=== PATIENT | male | born 1960 | race Caucasian/White ===

== ENCOUNTER 2021-02-24 13:39 | Inpatient (IN) | payer MEDICAID ==
[~2021-02-24] VITALS: Ht 188 cm; Wt 72.6 kg
[~2021-02-24 13:39] MED LIST: ARIP10TA38 PO; GABA100C PO; LITH300CRT PO; QUET200T PO
[2021-02-24 16:48] LABS: BASOPHILS % (AUTO) 0.8 % (0.0-2.0); EOSINOPHILS % (AUTO) 2.2 % (1.0-6.0); HEMATOCRIT 43.3 % (41-53); HEMOGLOBIN 14.1 g/dL (13.5-17.5); LYMPHOCYTES # (AUTO) 1.8 K/uL (1.0-4.8); LYMPHOCYTES % (AUTO) 17.7 % (22.0-44.0); MEAN CORPUSCULAR HEMOGLOBIN 29.8 pg (26.0-34.0); MEAN CORPUSCULAR HGB CONC 32.5 G/dL (31.0-37.0); MEAN CORPUSCULAR VOLUME 92 fL (80-100); MONOCYTES # (AUTO) 0.9 K/uL (0.1-1.0); MONOCYTES % (AUTO) 9.1 % (2.0-9.0); NEUTROPHILS % (AUTO) 70.2 % (40.0-70.0); PLATELET COUNT (AUTO) 181 K/uL (150-450); RED BLOOD CELL COUNT(AUTO) 4.73 MIL/uL (4.50-5.90); RED CELL DISTRIBUTION WIDTH 14.2 % (11.5-14.5)
[2021-02-24] MEDS ORDERED: VITA100T PO (16:51)
[2021-02-24] MEDS ORDERED: DIPH25 PO (16:53)
[2021-02-24] MEDS ORDERED: IPRA4AER IH (16:54)
[2021-02-24] MEDS ORDERED: DICY20TA2 PO (16:55)
[2021-02-24] MEDS ORDERED: CYCL10 PO (16:55)
[2021-02-24] MEDS ORDERED: FOLI-130 PO (16:56)
[2021-02-24 16:57] LABS: ANION GAP 14 mmol/L (8-16); CALCIUM, TOTAL 8.4 mg/dL (8.8-10.5); CARBON DIOXIDE 33 mmol/L (22-29); CHLORIDE 101 mmol/L (98-107); GLOMERULAR FILTR. RATE CALC > 60 mL/min (>60); GLUCOSE,RANDOM 162 mg/dL (70-110); POTASSIUM 3.4 mmol/L (3.5-5.1); SODIUM SERUM 148 mmol/L (136-145); UREA NITROGEN, BLOOD 17 mg/dL (7-18)
[2021-02-24] MEDS ORDERED: IBUP-2071 PO (16:57)
[2021-02-24] MEDS ORDERED: FURO40 PO (16:57)
[2021-02-24] MEDS ORDERED: THIA100T80 PO (17:00)
[2021-02-24] MEDS ORDERED: POTA20TA83 PO (17:00)
[2021-02-24] MEDS ORDERED: QUET200T PO (17:00)
[2021-02-24] MEDS ORDERED: TIOT185 IH (17:00)
[2021-02-24] MEDS ORDERED: [UNRECOGNIZED DRUG - CODE] PO (17:00)
[2021-02-24] MEDS ORDERED: ONDA-104 PO (17:00)
[2021-02-24 17:03] LABS: ALANINE AMINOTRANSFERASE 26 U/L (12-78); ALBUMIN 3.4 g/dL (3.4-5.0); ALKALINE PHOSPHATASE 77 U/L (46-116); ASPARTATE AMINOTRANSFERASE 23 U/L (15-37); BILIRUBIN,TOTAL 0.5 mg/dL (0.1-1.0); TOTAL PROTEIN, SERUM 7.7 g/dL (6.4-8.2)
[2021-02-24 17:10] LABS: COVID AG,FIA SOURCE NASOPHARYNGEAL
[2021-02-24 18:08] LABS: LITHIUM < 0.20 mmol/L (0.60-1.20)
[2021-02-24 18:47] LABS: AMPHET/METH SCREEN,URINE POSITIVE (NEGATIVE); BARBITURATE SCREEN, URINE NEGATIVE (NEGATIVE); BENZODIAZEPINES SCREEN,URINE NEGATIVE (NEGATIVE); CANNABINOID SCREEN,URINE NEGATIVE (NEGATIVE); COCAINE SCREEN,URINE NEGATIVE (NEGATIVE); METHADONE SCREEN, URINE NEGATIVE (NEGATIVE); OPIATE SCREEN,URINE NEGATIVE (NEGATIVE)
[2021-02-24 18:49] LABS: PHENCYCLIDINE SCREEN,URINE NEGATIVE (NEGATIVE)
[2021-02-24] MEDS ORDERED: OLANZapine 5 MG RAPDIS TABLET PO PRN (19:00)
[2021-02-24] MEDS ORDERED: ZOLPIDEM TARTRATE 10 MG TABLET PO PRN (19:00)
[2021-02-24] MEDS ORDERED: LORazepam 2 MG TABLET PO PRN (19:00)
[2021-02-24] MEDS ORDERED: POTASSIUM CHLORIDE 10% 40 MEQ/30 ML LIQUID UDCUP PO ONE (20:00)
[2021-02-24] MEDS ORDERED: FUROSEMIDE 20 MG TABLET PO ONE (20:00)
[2021-02-24] MEDS ORDERED: BUPRENORPHINE HCL/NALOXONE HCL 8-2 MG SUBLINGUAL TABLET SL ONE (20:00)
[2021-02-25 05:15] LABS: CHOL/HDL RATIO 3.1 (4.2-7.3); CHOLESTEROL 124 mg/dL (131-200); HDL CHOLESTEROL 40 mg/dL (40-60); LDL CHOL (CALC.) 72 mg/dL (0-130); TRIGLYCERIDES 61 mg/dL (15-150)
[2021-02-25] MEDS ORDERED: FUROSEMIDE 20 MG TABLET PO ONE (16:30)
[2021-02-25] MEDS ORDERED: ALBUTEROL SULFATE HFA 90 MCG/PUFF 8 GM INHALER IH ONE (16:30)
[2021-02-25] MEDS ORDERED: BUPRENORPHINE HCL/NALOXONE HCL 2-0.5 MG SUBLINGUAL TABLET SL ONE (16:30)
[2021-02-25 18:03] VITALS: BP 158/86
[2021-02-25 21:25] VITALS: BP 103/68
[2021-02-25] MEDS ORDERED: CloNIDine HCL 0.1 MG TABLET PO PRN (21:30)
[2021-02-25] MEDS ORDERED: TUBERCULIN, PURIFIED PROTEIN DERIVATIVE 5 TU/0.1 ML SYRINGE ID ONE (21:30)
[2021-02-25] MEDS ORDERED: GuaiFENesin/D-METHORPHAN [SUGAR-FREE] 200-20MG/10 ML SYRUP UDCUP PO PRN (21:30)
[2021-02-25] MEDS ORDERED: MAGNESIUM HYDROXIDE SUSPENSION 30 ML UDCUP PO PRN (21:30)
[2021-02-25] MEDS ORDERED: HydrOXYzine PAMOATE 50 MG CAPSULE PO PRN (21:30)
[2021-02-25] MEDS: CloNIDine HCL 0.1 MG TABLET PO SCH (21:30)
[2021-02-25] MEDS ORDERED: LOPERAMIDE HCL 2 MG CAPSULE PO PRN ×2 (21:30)
[2021-02-25] MEDS ORDERED: ACETAMINOPHEN 325 MG TABLET PO PRN (21:30)
[2021-02-25] MEDS ORDERED: MAG HYDROX/AL HYDROX/SIMETH ES 30 ML SUSPENSION UDCUP PO PRN ×2 (21:30)
[2021-02-25] MEDS ORDERED: PROMETHAZINE HCL 25 MG TABLET PO PRN (21:30)
[2021-02-25] MEDS ORDERED: IBUPROFEN 600 MG TABLET PO PRN (21:30)
[2021-02-25] MEDS ORDERED: ALBUTEROL SULFATE HFA 90 MCG/PUFF 8 GM INHALER IH PRN (22:00)
[2021-02-25 22:25] VITALS: BP 111/72
[2021-02-25 23:25] VITALS: BP_SYST 108; BP_SYST 113; BP_DIAS 66
[2021-02-26] VITALS (8 sets, daily range): BP systolic 95–114; BP diastolic 62–71
[2021-02-26] MEDS: CloNIDine HCL 0.1 MG TABLET PO SCH ×4 (05:51→20:29)
[2021-02-26 06:21] LABS: HEMOGLOBIN A1C 5.8 % (3.8-5.6)
[2021-02-26 06:30] LABS: ALANINE AMINOTRANSFERASE 134 U/L (12-78); ALBUMIN 2.6 g/dL (3.4-5.0); ALKALINE PHOSPHATASE 194 U/L (46-116); ANION GAP 3 mmol/L (8-16); ASPARTATE AMINOTRANSFERASE 123 U/L (15-37); BILIRUBIN,TOTAL 0.2 mg/dL (0.1-1.0); CALCIUM, TOTAL 8.2 mg/dL (8.8-10.5); CARBON DIOXIDE 30 mmol/L (22-29); CHLORIDE 102 mmol/L (98-107); CHOL/HDL RATIO 3.7 (4.2-7.3); CHOLESTEROL 88 mg/dL (131-200); CREATININE 0.71 mg/dL (0.60-1.30); FREE T4 (FREE THYROXINE) 0.92 ng/dL (0.76-1.46); GLOMERULAR FILTR. RATE CALC > 60 mL/min (>60); GLUCOSE,RANDOM 93 mg/dL (70-110); HDL CHOLESTEROL 24 mg/dL (40-60); LDL CHOL (CALC.) 51 mg/dL (0-130); POTASSIUM 5.3 mmol/L (3.5-5.1); SODIUM SERUM 135 mmol/L (136-145); THYROID STIMULATING HORMONE 1.42 uIU/mL (0.36-3.74); TOTAL PROTEIN, SERUM 6.8 g/dL (6.4-8.2); TRIGLYCERIDES 64 mg/dL (15-150); UREA NITROGEN, BLOOD 9 mg/dL (7-18)
[2021-02-26] MEDS: MULTIVITAMINS WITH MINERALS, THERAPEUTIC TABLET PO SCH (08:41)
[2021-02-26] MEDS: THIAMINE 100 MG TABLET PO SCH ×2 (08:41→17:08)
[2021-02-26] MEDS: GABAPENTIN 300 MG CAPSULE PO SCH ×4 (08:41→20:29)
[2021-02-26] MEDS: FUROSEMIDE 20 MG TABLET PO SCH (08:41)
[2021-02-26] MEDS: OMEGA-3/DHA/EPA/FISH OIL 1,000 MG CAPSULE PO SCH (08:42)
[2021-02-26] MEDS: DULoxetine HCL 20 MG CAPSULE PO SCH (08:42)
[2021-02-26] MEDS: FOLIC ACID 1 MG TABLET PO SCH (08:42)
[2021-02-26] MEDS: NICOTINE 21 MG/24 HOUR PATCH TD SCH (08:43)
[2021-02-26] MEDS: POTASSIUM CHLORIDE 10 MEQ ER TABLET PO SCH (08:43)
[2021-02-26] MEDS: ACAMPROSATE CALCIUM 333 MG DR TABLET PO SCH ×3 (08:43→17:09)
[2021-02-26] MEDS: TIOTROPIUM BROMIDE 18 MCG/INH HANDIHALER [5] IH SCH (08:44)
[2021-02-26] MEDS: HydrOXYzine PAMOATE 50 MG CAPSULE PO PRN ×2 (17:07→21:34)
[2021-02-26] MEDS ORDERED: QUEtiapine FUMARATE 100 MG TABLET PO PRN (17:15)
[2021-02-26] MEDS: MELATONIN 5 MG TABLET PO SCH (20:29)
[2021-02-26] MEDS ORDERED: QUEtiapine FUMARATE 200 MG TABLET PO SCH (21:00)
[2021-02-26] MEDS ORDERED: OLANZapine 10 MG RAPDIS TABLET PO SCH (21:00)
[2021-02-27 05:59] VITALS: BP 115/75
[2021-02-27] MEDS: CloNIDine HCL 0.1 MG TABLET PO SCH ×4 (06:01→20:44)
[2021-02-27 08:00] VITALS: BP 98/59
[2021-02-27] MEDS: OMEGA-3/DHA/EPA/FISH OIL 1,000 MG CAPSULE PO SCH (08:50)
[2021-02-27] MEDS: FOLIC ACID 1 MG TABLET PO SCH (08:50)
[2021-02-27] MEDS: GABAPENTIN 300 MG CAPSULE PO SCH ×2 (08:50→12:51)
[2021-02-27] MEDS: THIAMINE 100 MG TABLET PO SCH ×2 (08:50→17:51)
[2021-02-27] MEDS: FUROSEMIDE 20 MG TABLET PO SCH (08:50)
[2021-02-27] MEDS: MULTIVITAMINS WITH MINERALS, THERAPEUTIC TABLET PO SCH (08:50)
[2021-02-27] MEDS: TIOTROPIUM BROMIDE 18 MCG/INH HANDIHALER [5] IH SCH (08:51)
[2021-02-27] MEDS: POTASSIUM CHLORIDE 10 MEQ ER TABLET PO SCH (08:51)
[2021-02-27] MEDS: ACAMPROSATE CALCIUM 333 MG DR TABLET PO SCH ×3 (08:51→17:51)
[2021-02-27] MEDS: DULoxetine HCL 20 MG CAPSULE PO SCH (08:51)
[2021-02-27] MEDS: NICOTINE 21 MG/24 HOUR PATCH TD SCH (08:52)
[2021-02-27 16:51] VITALS: BP 129/77
[2021-02-27] MEDS: GABAPENTIN 400 MG CAPSULE PO SCH ×2 (17:51→20:45)
[2021-02-27] MEDS: HydrOXYzine PAMOATE 50 MG CAPSULE PO PRN (17:52)
[2021-02-27] MEDS: MELATONIN 5 MG TABLET PO SCH (20:45)
[2021-02-27] MEDS ORDERED: QUEtiapine FUMARATE 300 MG TABLET PO SCH (21:00)
[2021-02-28 05:30] VITALS: BP 98/66
[2021-02-28] MEDS: CloNIDine HCL 0.1 MG TABLET PO SCH ×4 (05:54→20:19)
[2021-02-28 08:30] VITALS: BP 112/76
[2021-02-28] MEDS: ACAMPROSATE CALCIUM 333 MG DR TABLET PO SCH ×3 (09:35→16:22)
[2021-02-28] MEDS: DULoxetine HCL 20 MG CAPSULE PO SCH (09:35)
[2021-02-28] MEDS: FUROSEMIDE 20 MG TABLET PO SCH (09:36)
[2021-02-28] MEDS: MULTIVITAMINS WITH MINERALS, THERAPEUTIC TABLET PO SCH (09:36)
[2021-02-28] MEDS: OMEGA-3/DHA/EPA/FISH OIL 1,000 MG CAPSULE PO SCH (09:36)
[2021-02-28] MEDS: THIAMINE 100 MG TABLET PO SCH ×2 (09:36→16:22)
[2021-02-28] MEDS: FOLIC ACID 1 MG TABLET PO SCH (09:36)
[2021-02-28] MEDS: GABAPENTIN 400 MG CAPSULE PO SCH ×2 (09:36→12:40)
[2021-02-28] MEDS: TIOTROPIUM BROMIDE 18 MCG/INH HANDIHALER [5] IH SCH (09:36)
[2021-02-28] MEDS: POTASSIUM CHLORIDE 10 MEQ ER TABLET PO SCH (09:36)
[2021-02-28] MEDS: NICOTINE 21 MG/24 HOUR PATCH TD SCH (09:45)
[2021-02-28 16:20] VITALS: BP 103/60
[2021-02-28] MEDS: GABAPENTIN 300 MG CAPSULE PO SCH ×2 (16:22→20:18)
[2021-02-28] MEDS: QUEtiapine FUMARATE 200 MG TABLET PO SCH (20:19)
[2021-02-28] MEDS: MELATONIN 5 MG TABLET PO SCH (20:19)
[2021-03-01 05:15] VITALS: BP 107/72
[2021-03-01] MEDS: CloNIDine HCL 0.1 MG TABLET PO SCH ×4 (05:29→21:33)
[2021-03-01] MEDS: OMEGA-3/DHA/EPA/FISH OIL 1,000 MG CAPSULE PO SCH (10:22)
[2021-03-01] MEDS: DULoxetine HCL 30 MG CAPSULE PO SCH (10:22)
[2021-03-01] MEDS: QUEtiapine FUMARATE 25 MG TABLET PO SCH ×3 (10:22→16:54)
[2021-03-01] MEDS: FOLIC ACID 1 MG TABLET PO SCH (10:23)
[2021-03-01] MEDS: GABAPENTIN 300 MG CAPSULE PO SCH ×4 (10:23→20:49)
[2021-03-01] MEDS: MULTIVITAMINS WITH MINERALS, THERAPEUTIC TABLET PO SCH (10:23)
[2021-03-01] MEDS: THIAMINE 100 MG TABLET PO SCH ×2 (10:23→16:54)
[2021-03-01] MEDS: TIOTROPIUM BROMIDE 18 MCG/INH HANDIHALER [5] IH SCH (10:24)
[2021-03-01] MEDS: FUROSEMIDE 20 MG TABLET PO SCH (10:24)
[2021-03-01] MEDS: ACAMPROSATE CALCIUM 333 MG DR TABLET PO SCH ×3 (10:24→16:54)
[2021-03-01] MEDS: NICOTINE 21 MG/24 HOUR PATCH TD SCH (10:27)
[2021-03-01] MEDS: POTASSIUM CHLORIDE 10 MEQ ER TABLET PO SCH (10:27)
[2021-03-01 16:30] VITALS: BP 108/71
[2021-03-01] MEDS: MELATONIN 5 MG TABLET PO SCH (20:48)
[2021-03-01] MEDS: QUEtiapine FUMARATE 200 MG TABLET PO SCH (20:49)
[2021-03-02 05:20] VITALS: BP 105/68
[2021-03-02] MEDS: CloNIDine HCL 0.1 MG TABLET PO SCH ×4 (05:21→21:21)
[2021-03-02] MEDS: OMEGA-3/DHA/EPA/FISH OIL 1,000 MG CAPSULE PO SCH (09:42)
[2021-03-02] MEDS: NICOTINE 21 MG/24 HOUR PATCH TD SCH (09:42)
[2021-03-02] MEDS: QUEtiapine FUMARATE 25 MG TABLET PO SCH ×3 (09:42→16:12)
[2021-03-02] MEDS: FOLIC ACID 1 MG TABLET PO SCH (09:43)
[2021-03-02] MEDS: THIAMINE 100 MG TABLET PO SCH ×2 (09:43→16:12)
[2021-03-02] MEDS: DULoxetine HCL 30 MG CAPSULE PO SCH (09:43)
[2021-03-02] MEDS: FUROSEMIDE 20 MG TABLET PO SCH (09:43)
[2021-03-02] MEDS: MULTIVITAMINS WITH MINERALS, THERAPEUTIC TABLET PO SCH (09:43)
[2021-03-02] MEDS: GABAPENTIN 300 MG CAPSULE PO SCH ×4 (09:43→20:19)
[2021-03-02] MEDS: POTASSIUM CHLORIDE 10 MEQ ER TABLET PO SCH (09:44)
[2021-03-02] MEDS: ACAMPROSATE CALCIUM 333 MG DR TABLET PO SCH ×3 (09:44→16:12)
[2021-03-02] MEDS: TIOTROPIUM BROMIDE 18 MCG/INH HANDIHALER [5] IH SCH (09:45)
[2021-03-02 16:57] VITALS: BP 101/64
[2021-03-02] MEDS: QUEtiapine FUMARATE 200 MG TABLET PO SCH (20:19)
[2021-03-02] MEDS: MELATONIN 5 MG TABLET PO SCH (20:19)
[2021-03-03 05:36] VITALS: BP 96/62
[2021-03-03] MEDS: CloNIDine HCL 0.1 MG TABLET PO SCH ×4 (05:53→20:40)
[2021-03-03 09:18] VITALS: BP 92/61
[2021-03-03 09:21] LABS: COVID AG,FIA SOURCE NASAL SWAB
[2021-03-03] MEDS: POTASSIUM CHLORIDE 10 MEQ ER TABLET PO SCH (09:22)
[2021-03-03] MEDS: FUROSEMIDE 20 MG TABLET PO SCH (09:22)
[2021-03-03] MEDS: QUEtiapine FUMARATE 25 MG TABLET PO SCH ×3 (09:22→16:56)
[2021-03-03] MEDS: NICOTINE 21 MG/24 HOUR PATCH TD SCH (09:22)
[2021-03-03] MEDS: DULoxetine HCL 30 MG CAPSULE PO SCH (09:22)
[2021-03-03] MEDS: THIAMINE 100 MG TABLET PO SCH ×2 (09:22→16:55)
[2021-03-03] MEDS: ACAMPROSATE CALCIUM 333 MG DR TABLET PO SCH ×3 (09:23→16:55)
[2021-03-03] MEDS: FOLIC ACID 1 MG TABLET PO SCH (09:23)
[2021-03-03] MEDS: GABAPENTIN 300 MG CAPSULE PO SCH ×3 (09:23→16:55)
[2021-03-03] MEDS: OMEGA-3/DHA/EPA/FISH OIL 1,000 MG CAPSULE PO SCH (09:23)
[2021-03-03] MEDS: MULTIVITAMINS WITH MINERALS, THERAPEUTIC TABLET PO SCH (09:33)
[2021-03-03] MEDS: TIOTROPIUM BROMIDE 18 MCG/INH HANDIHALER [5] IH SCH (10:24)
[2021-03-03 16:17] VITALS: BP 123/77
[2021-03-03] MEDS: MELATONIN 5 MG TABLET PO SCH (20:40)
[2021-03-03] MEDS: GABAPENTIN 400 MG CAPSULE PO SCH (20:40)
[2021-03-03] MEDS: QUEtiapine FUMARATE 200 MG TABLET PO SCH (20:41)
[2021-03-04 05:44] VITALS: BP 90/60
[2021-03-04] MEDS: CloNIDine HCL 0.1 MG TABLET PO SCH ×4 (05:48→22:00)
[2021-03-04 08:27] VITALS: BP 101/96
[2021-03-04] MEDS ORDERED: DULoxetine HCL 20 MG CAPSULE PO SCH (09:00)
[2021-03-04] MEDS: FOLIC ACID 1 MG TABLET PO SCH (09:06)
[2021-03-04] MEDS: MULTIVITAMINS WITH MINERALS, THERAPEUTIC TABLET PO SCH (09:06)
[2021-03-04] MEDS: THIAMINE 100 MG TABLET PO SCH ×2 (09:06→17:16)
[2021-03-04] MEDS: QUEtiapine FUMARATE 25 MG TABLET PO SCH ×3 (09:06→17:16)
[2021-03-04] MEDS: GABAPENTIN 400 MG CAPSULE PO SCH ×4 (09:06→21:00)
[2021-03-04] MEDS: ACAMPROSATE CALCIUM 333 MG DR TABLET PO SCH ×3 (09:06→17:16)
[2021-03-04] MEDS: OMEGA-3/DHA/EPA/FISH OIL 1,000 MG CAPSULE PO SCH (09:07)
[2021-03-04] MEDS: FUROSEMIDE 20 MG TABLET PO SCH (09:07)
[2021-03-04] MEDS: POTASSIUM CHLORIDE 10 MEQ ER TABLET PO SCH (09:07)
[2021-03-04] MEDS: NICOTINE 21 MG/24 HOUR PATCH TD SCH (09:11)
[2021-03-04] MEDS: TIOTROPIUM BROMIDE 18 MCG/INH HANDIHALER [5] IH SCH (09:11)
[2021-03-04 16:29] VITALS: BP 117/69
[2021-03-04] MEDS ORDERED: QUEtiapine FUMARATE 200 MG TABLET PO SCH (21:00)
[2021-03-04] MEDS: MELATONIN 5 MG TABLET PO SCH (21:00)
[2021-03-05 06:00] VITALS: BP 102/66
[2021-03-05] MEDS: CloNIDine HCL 0.1 MG TABLET PO SCH ×5 (06:02→21:04)
[2021-03-05 08:00] VITALS: BP 98/62
[2021-03-05] MEDS: TIOTROPIUM BROMIDE 18 MCG/INH HANDIHALER [5] IH SCH (09:00)
[2021-03-05] MEDS: MULTIVITAMINS WITH MINERALS, THERAPEUTIC TABLET PO SCH (09:02)
[2021-03-05] MEDS: NICOTINE 21 MG/24 HOUR PATCH TD SCH (09:02)
[2021-03-05] MEDS: QUEtiapine FUMARATE 25 MG TABLET PO SCH ×3 (09:03→16:30)
[2021-03-05] MEDS: OMEGA-3/DHA/EPA/FISH OIL 1,000 MG CAPSULE PO SCH (09:03)
[2021-03-05] MEDS: FOLIC ACID 1 MG TABLET PO SCH (09:03)
[2021-03-05] MEDS: POTASSIUM CHLORIDE 10 MEQ ER TABLET PO SCH (09:03)
[2021-03-05] MEDS: GABAPENTIN 400 MG CAPSULE PO SCH ×4 (09:03→20:08)
[2021-03-05] MEDS: DULoxetine HCL 60 MG CAPSULE PO SCH (09:04)
[2021-03-05] MEDS: THIAMINE 100 MG TABLET PO SCH ×2 (09:05→16:30)
[2021-03-05] MEDS: ACAMPROSATE CALCIUM 333 MG DR TABLET PO SCH ×3 (09:07→14:16)
[2021-03-05] MEDS: FUROSEMIDE 20 MG TABLET PO SCH (09:08)
[2021-03-05 16:57] VITALS: BP 119/69
[2021-03-05] MEDS: MELATONIN 5 MG TABLET PO SCH (20:08)
[2021-03-05] MEDS ORDERED: ACAM333T7 PO (20:34)
[2021-03-05] MEDS ORDERED: OMEG-135 PO (20:34)
[2021-03-05] MEDS ORDERED: QUET25TA36 PO (20:34)
[2021-03-05] MEDS ORDERED: DULO60CA45 PO (20:34)
[2021-03-05] MEDS ORDERED: QUET200T30 PO (20:34)
[2021-03-05] MEDS ORDERED: GABA-1201 PO (20:34)
[2021-03-05] MEDS ORDERED: MELA5TAB40 PO (20:34)
[2021-03-05] MEDS ORDERED: QUEtiapine FUMARATE 200 MG TABLET PO SCH (21:00)
[2021-03-05 21:05] VITALS: BP 90/58
[2021-03-06 05:20] VITALS: BP 104/68
[2021-03-06] MEDS: CloNIDine HCL 0.1 MG TABLET PO SCH ×2 (05:35→13:14)
[2021-03-06 08:00] VITALS: BP 117/73
[2021-03-06] MEDS: OMEGA-3/DHA/EPA/FISH OIL 1,000 MG CAPSULE PO SCH (08:42)
[2021-03-06] MEDS: DULoxetine HCL 60 MG CAPSULE PO SCH (08:42)
[2021-03-06] MEDS: FUROSEMIDE 20 MG TABLET PO SCH (08:42)
[2021-03-06] MEDS: TIOTROPIUM BROMIDE 18 MCG/INH HANDIHALER [5] IH SCH (08:42)
[2021-03-06] MEDS: GABAPENTIN 400 MG CAPSULE PO SCH ×2 (08:42→13:14)
[2021-03-06] MEDS: ACAMPROSATE CALCIUM 333 MG DR TABLET PO SCH ×2 (08:42→13:13)
[2021-03-06] MEDS: QUEtiapine FUMARATE 25 MG TABLET PO SCH ×2 (08:42→13:15)
[2021-03-06] MEDS: MULTIVITAMINS WITH MINERALS, THERAPEUTIC TABLET PO SCH (08:43)
[2021-03-06] MEDS: THIAMINE 100 MG TABLET PO SCH (08:43)
[2021-03-06] MEDS: FOLIC ACID 1 MG TABLET PO SCH (08:46)
[2021-03-06] MEDS: POTASSIUM CHLORIDE 10 MEQ ER TABLET PO SCH (08:47)
[2021-03-06] MEDS: NICOTINE 21 MG/24 HOUR PATCH TD SCH (09:37)
[2021-03-06] MEDS ORDERED: CLON0.1T2 PO (10:32)
== END 2021-03-06 14:40 | disposition home or self-care (01) | DRG 750 ==
LOC: EMS 13:39 → UNDOADMIN 17:04 → 5S 17:04 → 3EI 02-25 17:16
PROVIDERS: ADMIT Psychiatry & Neurology Psychiatry; ATTEND Psychiatry & Neurology Psychiatry
DX: F25.1 Schizoaffective disorder, depressive type (principal); R18.8 Other ascites; I50.9 Heart failure, unspecified; B18.2 Chronic viral hepatitis C; F11.23 Opioid dependence with withdrawal; F15.90 Other stimulant use, unspecified, uncomplicated; F41.9 Anxiety disorder, unspecified; G89.29 Other chronic pain; J44.9 Chronic obstructive pulmonary disease, unspecified; M54.9 Dorsalgia, unspecified; Z20.822 Contact with and (suspected) exposure to COVID-19; Z65.3 Problems related to other legal circumstances; Z87.891 Personal history of nicotine dependence; Z91.19 Patient's noncompliance with other medical treatment and regimen
CPT/HCPCS: 80053; 80061; 80178; 82140; 83036; 84132; 84439; 84443; 85025; 86592; 93005; 99285; G0480; J3535; Q9967